=== PATIENT | female | born 1995 | race Two or more races ===

== ENCOUNTER 2017-04-24 07:41 | Emergency (ER) | payer OTHER ==
[2017-04-24] MEDS ORDERED: NS 1,000 ML IV ONE (08:00)
[2017-04-24 08:26] LABS: % IMMATURE GRANULYOCYTES 0.3 % (0.0-1.1); ABSOLUTE IMMATURE GRANULOCYTES 0.02 10^3/uL (0.00-0.10); ADD DIFF? NO; ADD MORPH? NO; ADD SCAN? NO; ATYPICAL LYMPHOCYTE FLAG 10 (0-99); FRAGMENT RBC FLAG 0 (0-99); HEMATOCRIT 43.1 % (38.0-47.0); LEFT SHIFT FLG 0 (0-99); LIPEMIA HEMOLYSIS FLAG 80 (0-99); MEAN CELL HEMOGLOBIN CONCENTR. 32.5 g/dL (32.4-36.7); MEAN CELL VOLUME 86.2 fL (81.5-99.8); MEAN PLATELET VOLUME 9.6 fL (8.7-11.7); PLATELET CLUMPS FLAG 0 (0-99); PLATELET COUNT 236 10^3/uL (150-400); RED CELL DISTRIBUTION WIDTH 13.6 % (11.5-15.2)
[2017-04-24 08:31] LABS: ANION GAP 11 mEq/L (8-16); CALCIUM 9.8 mg/dL (8.5-10.4); CARBON DIOXIDE 26 mEq/l (22-31); CHLORIDE 103 mEq/L (97-110); CREATININE 0.6 mg/dL (0.6-1.0); GLOMERULAR FILTRATION RATE > 60; GLUCOSE 94 mg/dL (70-100); POTASSIUM 4.1 mEq/L (3.5-5.2); SODIUM 140 mEq/L (134-144)
[2017-04-24] MEDS ORDERED: KETOROLAC 30 MG/1 ML SDV IVP ONE (08:34)
--- NOTE | 2017-04-24 09:15 | EDPHY ---
HPI/HX/ROS/PE/MDM Narrative: CHIEF COMPLAINT: Abdominal pain, flank pain HPI: The patient is a 22 y/o female arriving with her friend complaining of LLQ abdominal pain and left flank pain for the last 2 days that worsened around 17: 00 last night, about 15.5 hours ago. She went to urgent care on Friday, 5 days ago, for sinus symptoms and was prescribed Augmentin. Most of her symptoms improved, but she continued to have a fever. Two days ago she developed lower abdominal pain, back pain, and continued to have a fever so she went to urgent care ago. Her UA indicated a UTI and they prescribed her Levaquin and advised her to stop the Augmentin. Her pain worsened last night and she had difficulty sleeping. She has associated urinary urgency and frequency, but denies dysuria, hematuria, vomiting, or other complaints. Her LMP was 1 week ago. REVIEW OF SYSTEMS: Aside from elements discussed in the HPI, a comprehensive 10-point review of systems was reviewed and is negative. PMH: UTIs, 1 prior kidney infection, rhinoplasties x3, sinus infections SOCIAL HISTORY: Friend at bedside PHYSICAL EXAM: General:Patient is alert, resting comfortably chewing gum, in no acute distress. ENT:Eyes are normal to inspection. ENT inspection normal. Neck: Normal inspection. Full range of motion. Respiratory:No respiratory distress. Breath sounds normal bilaterally. Cardiovascular: Regular rate and rhythm. Strong peripheral pulses. Normal cap refill. Abdomen: The abdomen is nontender to palpation. There are no peritoneal signs. Back: Normal to inspection. No tenderness to palpation. Skin: Normal color. No rash. Warm and dry. Extremities: Normal appearance. Full range of motion. Neuro: Oriented x3. Normal motor function. Normal sensory function. ED Course: This is a healthy 22 y/o female who presents with a 2-day history of back pain and abdominal pain with associated urinary symptoms in addition to a 5-day history of fever. She has been on Augmentin and Levaquin in the last week for a sinus infection and UTI, respectively. She is completely well-appearing on exam with a benign abdomen. She is afebrile. Plan for IV, basic labs, UA, and symptom management. 1L IV NS and 30mg IV Toradol administered. Pelvic US is unremarkable for acute process per Dr. Torres, radiology. Abdominal CT negative. Patient's urine will be sent for culture. I discussed work up with the patient. She will be discharged home in good condition with standard UTI care instructions and return precautions. She is comfortable with this plan. - Data Points Imaging Results: Imaging Impressions Abdomen/Pelvis Ultrasound 04/24/17 10:35 Impression: 1. No hydronephrosis or perinephric fluid collection. 2. No postvoid residual. 3. Minimally echogenic kidneys may be a manifestation of bilateral pyelonephritis or medical renal disease. Findings discussed with Emergency Department physician, Dr. Eleazar Cochran, on April 24, 2017 at 1211 hours. Pelvic/Renal Ultrasound 04/24/17 10:35 Impression: 1. Normal uterus and right ovary. No torsion or ovarian cyst. 2. Left ovary is not well visualized. No left adnexal mass. Findings discussed with Emergency Department physician, Dr. Eleazar Cochran, on April 24, [address] 04/24/17 12:19 Impression: 1. No visible etiology for the patient's pain. 2. 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 Findings discussed with Eleazar Cochran MD, 04/24/2017, at 1334 hours. Imaging: Discussed imaging studies w/ bingo caller Radiologist, I viewed and interpreted images myself Laboratory Results: Laboratory Results 04/24/17 08:07 04/24/17 08:07 04/24/17 04/24/17 04/24/17 09:41 08:07 08:07 WBC RBC Hgb Hct MCV MCH MCHC RDW Plt Count MPV Neut % (Auto) Lymph % (Auto) [place] % (Auto) Eos % (Auto) Baso % (Auto) Nucleat RBC Rel Count Absolute Neuts (auto) Absolute Lymphs (auto) Absolute Monos (auto) Absolute Eos (auto) Absolute Basos (auto) Absolute Nucleated RBC Immature Gran % Immature Gran # Sodium 140 mEq/L mEq/L (134-144) Potassium 4.1 mEq/L mEq/L (3.5-5.2) Chloride 103 mEq/L mEq/L (97-110) Carbon Dioxide 26 mEq/l mEq/l (22-31) Anion Gap 11 mEq/L mEq/L (8-16) BUN 11 mg/dL mg/dL (7-23) Creatinine 0.6 mg/dL mg/dL (0.6-1.0) Estimated GFR > 60 Glucose 94 mg/dL mg/dL (70-100) Calcium 9.8 mg/dL mg/dL (8.5-10.4) Beta HCG, Qual NEGATIVE Urine Color YELLOW Urine Appearance HAZY Urine pH 7.0 (5.0-7.5) Ur Specific [place] 1.017 (1.002-1.030) Urine Protein NEGATIVE (NEGATIVE) Urine Ketones NEGATIVE (NEGATIVE) Urine Blood NEGATIVE (NEGATIVE) Urine Nitrate NEGATIVE (NEGATIVE) Urine Bilirubin NEGATIVE (NEGATIVE) Urine Urobilinogen NEGATIVE EU EU (0.2-1.0) Ur Leukocyte Esterase TRACE H (NEGATIVE) Urine RBC 3-5 /hpf H /hpf (0-3) Urine WBC 5-10 /hpf H /hpf (0-3) Ur Epithelial Cells 1+ /lpf /lpf (NONE-1+) Urine Bacteria TRACE /hpf H /hpf (NONE SEEN) Urine Mucus TRACE /lpf /lpf (NONE-1+) Urine Glucose NEGATIVE (NEGATIVE) 04/24/17 08:07 WBC 5.93 10^3/uL 10^3/uL (3.80-9.50) RBC 5.00 10^6/uL 10^6/uL (4.18-5.33) Hgb 14.0 g/dL g/dL (12.6-16.3) Hct 43.1 % % (38.0-47.0) MCV 86.2 fL fL (81.5-99.8) MCH 28.0 pg pg (27.9-34.1) MCHC 32.5 g/dL g/dL (32.4-36.7) RDW 13.6 % % (11.5-15.2) Plt Count 236 10^3/uL 10^3/uL (150-400) MPV 9.6 fL fL (8.7-11.7) Neut % (Auto) 44.2 % % (39.3-74.2) Lymph % (Auto) 42.7 % % (15.0-45.0) [place] % (Auto) 8.4 % % (4.5-13.0) Eos % (Auto) 3.7 % % (0.6-7.6) Baso % (Auto) 0.7 % % (0.3-1.7) Nucleat RBC Rel Count 0.0 % % (0.0-0.2) Absolute Neuts (auto) 2.62 10^3/uL 10^3/uL (1.70-6.50) Absolute Lymphs (auto) 2.53 10^3/uL 10^3/uL (1.00-3.00) Absolute Monos (auto) 0.50 10^3/uL 10^3/uL (0.30-0.80) Absolute Eos (auto) 0.22 10^3/uL 10^3/uL (0.03-0.40) Absolute Basos (auto) 0.04 10^3/uL 10^3/uL (0.02-0.10) Absolute Nucleated RBC 0.00 10^3/uL 10^3/uL (0-0.01) Immature Gran % 0.3 % % (0.0-1.1) Immature Gran # 0.02 10^3/uL 10^3/uL (0.00-0.10) Sodium Potassium Chloride Carbon Dioxide Anion Gap BUN Creatinine Estimated GFR Glucose Calcium Beta HCG, Qual Urine Color Urine Appearance Urine pH Ur Specific [place] Urine Protein Urine Ketones Urine Blood Urine Nitrate Urine Bilirubin Urine Urobilinogen Ur Leukocyte Esterase Urine RBC Urine WBC Ur Epithelial Cells Urine Bacteria Urine Mucus Urine Glucose Medications Given: Discontinued Medications Sodium Chloride (Ns) 1,000 mls @ 0 mls/hr IV ONCE ONE PRN Reason: Wide Open Stop: 04/24/17 08:01 Last Admin: 04/24/17 08:00 Dose: 1,000 mls Ketorolac Tromethamine (Toradol) 30 mg IVP EDNOW ONE Stop: 04/24/17 08:35 Last Admin: 04/24/17 08:38 Dose: 30 mg General Time Seen by Provider: 04/24/17 08:20 Initial Vital Signs: Initial Vital Signs Temperature (C) 36.5 C 04/24/17 07:46 Heart Rate 84 04/24/17 07:46 Respiratory Rate 18 04/24/17 07:46 Blood Pressure 126/88 H 04/24/17 07:46 O2 Sat (%) 97 04/24/17 07:46 O2 Delivery Mode Room Air Allergies/Adverse Reactions: acetaminophen [From Vicodin] Allergy (Verified 04/24/17 07:44) azithromycin Allergy (Verified 04/24/17 07:44) hydrocodone bitartrate [From Vicodin] Allergy (Verified 04/24/17 07:44) latex Allergy (Verified 04/24/17 07:44) promethazine HCl [From Phenergan] Allergy (Verified 04/24/17 07:44) Home Medications: Medication Instructions Recorded Cephalexin [Keflex] 500 mg PO BID 5 Days 08/04/16 Sprintec 28 Day Tablet 08/04/16 Zoloft 100mg (*) 04/24/17 Departure - Departure Disposition: Home, Routine, Self-Care Clinical Impression: Flank pain Abdominal pain Qualifiers: Abdominal location: left lower quadrant Qualified Code(s): R10.32 - Left lower quadrant pain Urinary tract infection Qualifiers: Urinary tract infection type: site unspecified Hematuria presence: without hematuria Qualified Code(s): N39.0 - Urinary tract infection, site not specified Condition: Good Instructions: Urinary Tract Infection in Women (ED), Acute Abdominal Pain (ED) Additional Instructions: 1. Continue taking Levaquin as prescribed. 2. Follow up with your primary care provider for unimproved symptoms over the next few days. 3. Return to the ED for worsening of condition. Referrals: NONE *PRIMARY CARE P,. [Unknown] - As per Instructions [facility] [Clinic] - As per Instructions Report Scribed for: Eleazar Cochran Report Scribed by: Shabana Kendrick Date of Report: 04/24/17 Time of Report: 09:45 Physician Review and Approval Statement: Portions of this note were transcribed by an ED scribe. I personally performed the history, physical exam, and medical decision making; and confirm the accuracy of the information in the transcribed note.
[2017-04-24 09:51] LABS: COLOR YELLOW; LEUKOCYTE ESTERASE,URINE TRACE (NEGATIVE); NITRITE,URINE NEGATIVE (NEGATIVE)
[2017-04-24 09:59] LABS: BACTERIA TRACE /hpf (NONE SEEN); MUCUS TRACE /lpf (NONE-1+)
[2017-04-24 11:34] VITALS: RESP 16; TEMP 98.4
[2017-04-24] MEDS ORDERED: IOPAMIDOL (ISOVUE-300) 100 ML BTL ONE (13:02)
[2017-04-24 14:00] VITALS: BP 109/67; PULSE 69; O2SAT 97
== END 2017-04-24 13:58 | disposition home or self-care (01) ==
DX: N39.0 Urinary tract infection, site not specified (principal)
CPT/HCPCS: 96374; J1885; Q9967

== ENCOUNTER 2018-02-09 21:12 | Emergency (ER) | payer OTHER ==
[2018-02-09] MEDS ORDERED: NS 1,000 ML IV ONE ×2 (21:45→22:05)
[2018-02-09 22:12] LABS: PLATELET COUNT 317 10^3/uL (150-400)
--- NOTE | 2018-02-09 22:15 | EDPHY ---
H & P Stated Complaint: N/V, R side abd pain Time Seen by Provider: 02/09/18 22:15 HPI/ROS: HPI CHIEF COMPLAINT: Nausea, vomiting, diarrhea, abdominal pain HISTORY OF PRESENT ILLNESS: Patient very pleasant 23-year-old female, she has a history of mast cell activation, as well as urinary tract infections and kidney infections, she presents emergency room nausea vomiting and diarrhea abdominal pain. Patient reports to me that she started having some diarrhea earlier this morning around 10:00 a.m. And then had some lower abdominal pain that started earlier in the day. She then developed vomiting throughout the day. She states she vomited over 20 times. No blood. She denies any blood in her vomit or diarrhea. No fever. Main complaint now is ongoing nausea with lower abdominal pain. She has had watery diarrhea. 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 Family History: Noncontributory ROS REVIEW OF SYSTEMS: A comprehensive 10 point review of systems is otherwise negative aside from elements mentioned in the history of present illness. Exam Constitutional nontoxic appearing triage nursing summary reviewed, vital signs reviewed, awake/alert. Eyes normal conjunctivae and sclera, EOMI, PERRLA. HENT normal inspection, atraumatic, moist mucus membranes, no epistaxis, neck supple/ no meningismus, no raccoon eyes. Respiratory clear to auscultation bilaterally, normal breath sounds, no respiratory distress, no wheezing. Cardiovascular rate normal, regular rhythm, no murmur, no edema, distal pulses normal. Gastrointestinal mild tender palpation right lower quadrant,, no rebound, no guarding, normal bowel sounds, no distension, no pulsatile mass. Genitourinary no CVA tenderness. Musculoskeletal no midline vertebral tenderness, full range of motion, no calf swelling, no tenderness of extremities, no meningismus, good pulses, neurovascularly intact. Skin pink, warm, & dry, no rash, skin atraumatic. Neurologic awake, alert and oriented x 3, AAOx3, moves all 4 extremities equally, motor intact, sensory intact, CN II-XII intact, normal cerebellar, normal vision, normal speech. Psychiatric normal mood/affect. Heme/Lymph/Immune no lymphadenopathy. Differential diagnosis includes but is not limited to and in no particular order : Bowel obstruction, appendicitis, gallbladder disease, diverticulitis, colitis , enteritis, perforated viscus, gastritis, GERD, esophagitis, urinary tract infection, pyelonephritis, kidney stones Medical Decision Making: Plan for this patient IV establishment IV fluid bolus 2 L normal saline, IV Zofran nausea, check basic blood work electrolytes, test, CT scan abdomen pelvis with IV contrast rule out acute appendicitis. Re-evaluation: 1207: Patient re-evaluated. She is feeling slightly better but still complains of nausea and some abdominal cramping. She has received 2 L of fluid here in the emergency room. Her blood work has been reviewed. I will give her another dose of Zofran to see if this improves her nausea. CT scan abdomen pelvis with IV contrast shows no evidence of acute appendicitis there is a questionable right ovarian cyst versus abscess. We performed a ultrasound which shows no evidence of ovarian cyst, this appears to be a area of the cecum nose fluid-filled. After long discussion with the patient she still not feeling that well, plan will be for admission to the hospital for hydration nausea vomiting and diarrhea. 1214: Further discussion with the patient she is now declined hospital admission wants to go home. I explained that we did not see her appendix on CT scan and if she develops worsening abdominal pain fever vomiting she needs return to the emergency room. She is agreeable this plan. Return precautions discussed with her. Most likely clinical diagnosis a GI illness with nausea vomiting and diarrhea. Source: Patient - Personal History LMP (Females 10-55): 22-28 Days Ago Current Tetanus/Diphtheria Vaccine: Yes - Medical/Surgical History Hx Asthma: No Hx Chronic Respiratory Disease: No Hx Diabetes: No Hx Cardiac Disease: No Hx Renal Disease: No Hx Cirrhosis: No Hx Alcoholism: No Hx HIV/AIDS: No Hx Splenectomy or Spleen Trauma: No Other PMH: t&a rhinoplasty, mast cell activation syndrome, narcalepsy - Social History Smoking Status: Never smoked Constitutional: Initial Vital Signs Temperature (C) 37.2 C 02/09/18 21:12 Heart Rate 120 H 02/09/18 21:12 Respiratory Rate 18 02/09/18 21:12 Blood Pressure 112/80 02/09/18 21:12 O2 Sat (%) 99 02/09/18 21:12 O2 Delivery Mode Room Air Allergies/Adverse Reactions: acetaminophen [From Vicodin] Allergy (Verified 04/24/17 07:44) azithromycin Allergy (Verified 04/24/17 07:44) hydrocodone bitartrate [From Vicodin] Allergy (Verified 04/24/17 07:44) latex Allergy (Verified 04/24/17 07:44) promethazine HCl [From Phenergan] Allergy (Verified 04/24/17 07:44) Home Medications: Medication Instructions Recorded Sprintec 28 Day Tablet 08/04/16 Zoloft 100mg (*) 04/24/17 Ondansetron HCl [Zofran] 4 mg PO Q4-6PRN PRN #10 tablet 02/09/18 ZYRTEC 02/09/18 Medical Decision Making - Diagnostics Imaging Results: Imaging Impressions Abdomen CT 02/09/18 22:20 Impression: 1. 5 cm multiloculated fluid collection in the right lower quadrant, periappendiceal abscess versus ovarian cyst. Recommend pelvic sonography for further evaluation. Results called to Dr. Rush at 11:30 PM. Pelvic/Renal Ultrasound 02/09/18 23:27 Impression: Normal ultrasound pelvis. Fluid filled structure in the right adnexa appears represent the cecum. No convincing features of pelvic abscess or acute appendicitis on retrospective review of CT. Results called to Dr. Jude Rush at 12:00 PM. - Data Points Laboratory Results: Laboratory Results 02/09/18 21:55 02/09/18 21:55 02/09/18 02/09/18 02/09/18 23:28 21:55 21:55 WBC RBC Hgb Hct MCV MCH MCHC RDW Plt Count MPV Neut % (Auto) Lymph % (Auto) [place] % (Auto) Eos % (Auto) Baso % (Auto) Nucleat RBC Rel Count Absolute Neuts (auto) Absolute Lymphs (auto) Absolute Monos (auto) Absolute Eos (auto) Absolute Basos (auto) Absolute Nucleated RBC Immature Gran % Seg Neutrophils % Band Neutrophils % Lymphocytes % Monocytes % Eosinophils % Basophils % Metamyelocytes % Myelocytes % Promyelocytes % Blast Cells % Immature Gran # Absolute Seg Neuts Absolute Band Neuts Absolute Lymphocytes Absolute Monocytes Absolute Eosinophils Absolute Basophils Absolute Metamyelocyte Absolute Myelocytes Absolute Promyelocytes Absolute Plasma Cells RBC/WBC/PLT Morphology Absolute Blast Cells Plasma Cells % Platelet Estimate VBG Lactic Acid Sodium 137 mEq/L mEq/L (135-145) Potassium 4.0 mEq/L mEq/L (3.3-5.0) Chloride 103 mEq/L mEq/L (97-110) Carbon Dioxide 18 mEq/l L mEq/l (22-31) Anion Gap 16 mEq/L mEq/L (8-16) BUN 15 mg/dL mg/dL (7-23) Creatinine 0.6 mg/dL mg/dL (0.6-1.0) Estimated GFR > 60 Glucose 120 mg/dL H mg/dL (70-100) Calcium 10.1 mg/dL mg/dL (8.5-10.4) Total Bilirubin 0.7 mg/dL mg/dL (0.1-1.4) Conjugated Bilirubin 0.3 mg/dL mg/dL (0.0-0.5) Unconjugated Bilirubin 0.4 mg/dL mg/dL (0.0-1.1) AST 21 IU/L IU/L (14-46) ALT 27 IU/L IU/L (9-52) Alkaline Phosphatase 69 IU/L IU/L (38-126) Total Protein 8.2 g/dL g/dL (6.3-8.2) Albumin 4.9 g/dL g/dL (3.5-5.0) Lipase 34 IU/L IU/L (23-300) Beta HCG, Qual NEGATIVE Urine Color YELLOW Urine Appearance CLEAR Urine pH 6.0 (5.0-7.5) Ur Specific [place] > 1.035 H (1.002-1.030) Urine Protein NEGATIVE (NEGATIVE) Urine Ketones 2+ H (NEGATIVE) Urine Blood 1+ H (NEGATIVE) Urine Nitrate NEGATIVE (NEGATIVE) Urine Bilirubin NEGATIVE (NEGATIVE) Urine Urobilinogen NEGATIVE EU EU (0.2-1.0) Ur Leukocyte Esterase NEGATIVE (NEGATIVE) Urine RBC 5-10 /hpf H /hpf (0-3) Urine WBC 1-3 /hpf /hpf (0-3) Ur Epithelial Cells TRACE /lpf /lpf (NONE-1+) Urine Mucus TRACE /lpf /lpf (NONE-1+) Urine Glucose NEGATIVE (NEGATIVE) 02/09/18 02/09/18 21:55 21:55 WBC 13.92 10^3/uL H 10^3/uL (3.80-9.50) RBC 4.98 10^6/uL 10^6/uL (4.18-5.33) Hgb 14.1 g/dL g/dL (12.6-16.3) Hct 42.1 % % (38.0-47.0) MCV 84.5 fL fL (81.5-99.8) MCH 28.3 pg pg (27.9-34.1) MCHC 33.5 g/dL g/dL (32.4-36.7) RDW 13.3 % % (11.5-15.2) Plt Count 317 10^3/uL 10^3/uL (150-400) MPV 9.6 fL fL (8.7-11.7) Neut % (Auto) 92.3 % H % (39.3-74.2) Lymph % (Auto) 3.5 % L % (15.0-45.0) [place] % (Auto) 3.4 % L % (4.5-13.0) Eos % (Auto) 0.1 % L % (0.6-7.6) Baso % (Auto) 0.3 % % (0.3-1.7) Nucleat RBC Rel Count 0.0 % % (0.0-0.2) Absolute Neuts (auto) 12.84 10^3/uL H 10^3/uL (1.70-6.50) Absolute Lymphs (auto) 0.49 10^3/uL L 10^3/uL (1.00-3.00) Absolute Monos (auto) 0.47 10^3/uL 10^3/uL (0.30-0.80) Absolute Eos (auto) 0.02 10^3/uL L 10^3/uL (0.03-0.40) Absolute Basos (auto) 0.04 10^3/uL 10^3/uL (0.02-0.10) Absolute Nucleated RBC 0.00 10^3/uL 10^3/uL (0-0.01) Immature Gran % 0.4 % % (0.0-1.1) Seg Neutrophils % 86.0 % % Band Neutrophils % 6.0 % % Lymphocytes % 5.0 % % Monocytes % 3.0 % % Eosinophils % 0 % % Basophils % 0 % % Metamyelocytes % 0 % % Myelocytes % 0 % % Promyelocytes % 0 % % Blast Cells % 0 % % Immature Gran # 0.06 10^3/uL 10^3/uL (0.00-0.10) Absolute Seg Neuts 11.97 10^/uL H 10^/uL (1.70-6.50) Absolute Band Neuts 0.84 10^3/uL H 10^3/uL (0.00-0.70) Absolute Lymphocytes 0.70 10^3/uL L 10^3/uL (1.00-3.00) Absolute Monocytes 0.42 10^3/uL 10^3/uL (0.30-0.80) Absolute Eosinophils 0.00 10^3/uL L 10^3/uL (0.03-0.40) Absolute Basophils 0.00 10^3/uL L 10^3/uL (0.02-0.10) Absolute Metamyelocyte 0.00 10^3/mL 10^3/mL (0.00-0.00) Absolute Myelocytes 0.00 10^3/mL 10^3/mL (0.00-0.00) Absolute Promyelocytes 0.00 10^3/uL 10^3/uL (0.00-0.00) Absolute Plasma Cells 0.00 10^3/uL 10^3/uL (0.00-0.00) RBC/WBC/PLT Morphology NORMAL (NORMAL) Absolute Blast Cells 0.00 10^3/uL 10^3/uL (0.00-0.00) Plasma Cells % 0 % % Platelet Estimate ADEQUATE (ADEQ) VBG Lactic Acid 2.1 mmol/L mmol/L (0.7-2.1) Sodium Potassium Chloride Carbon Dioxide Anion Gap BUN Creatinine Estimated GFR Glucose Calcium Total Bilirubin Conjugated Bilirubin Unconjugated Bilirubin AST ALT Alkaline Phosphatase Total Protein Albumin Lipase Beta HCG, Qual Urine Color Urine Appearance Urine pH Ur Specific [place] Urine Protein Urine Ketones Urine Blood Urine Nitrate Urine Bilirubin Urine Urobilinogen Ur Leukocyte Esterase Urine RBC Urine WBC Ur Epithelial Cells Urine Mucus Urine Glucose Medications Given: Discontinued Medications Famotidine (Pepcid) 20 mg IVP EDNOW ONE Stop: 02/09/18 22:21 Last Admin: 02/09/18 22:28 Dose: 20 mg Sodium Chloride (Ns) 1,000 mls @ 0 mls/hr IV ONCE ONE PRN Reason: Wide Open Stop: 02/09/18 21:46 Last Admin: 02/09/18 21:51 Dose: 1,000 mls Sodium Chloride (Ns) 1,000 mls @ 0 mls/hr IV EDNOW ONE; Wide Open PRN Reason: Protocol Stop: 02/09/18 22:06 Last Admin: 02/09/18 22:18 Dose: 1,000 mls Ondansetron HCl (Zofran) 4 mg IVP EDNOW ONE Stop: 02/09/18 22:20 Last Admin: 02/09/18 22:26 Dose: 4 mg Ondansetron HCl (Zofran) 4 mg IVP EDNOW ONE Stop: 02/10/18 00:08 Last Admin: 02/10/18 00:09 Dose: 4 mg Departure - Departure Disposition: Home, Routine, Self-Care Clinical Impression: Dehydration Vomiting Qualifiers: Vomiting type: unspecified Vomiting Intractability: non-intractable Nausea presence: with nausea Qualified Code(s): R11.2 - Nausea with vomiting, unspecified Diarrhea Qualifiers: Diarrhea type: unspecified type Qualified Code(s): R19.7 - Diarrhea, unspecified Condition: Good
[2018-02-09] MEDS ORDERED: ONDANSETRON 4 MG/2 ML VIAL IVP ONE (22:19)
[2018-02-09] MEDS ORDERED: FAMOTIDINE 20 MG/2 ML SDV IVP ONE (22:20)
[2018-02-09] MEDS ORDERED: IOPAMIDOL (ISOVUE-300) 100 ML BTL ONE ×2 (22:21→22:58)
[2018-02-09 23:10] VITALS: BP 124/68
[2018-02-10] MEDS ORDERED: ONDANSETRON 4 MG/2 ML VIAL IVP ONE (00:07)
== END 2018-02-10 00:21 | disposition home or self-care (01) ==
LOC: UNDOADMOB 02-10 00:09
DX: R11.2 Nausea with vomiting, unspecified (principal); R19.7 Diarrhea, unspecified; E86.9 Volume depletion, unspecified; Z91.040 Latex allergy status
CPT/HCPCS: 96374; J2405; Q9967

== ENCOUNTER 2018-08-02 20:02 | Emergency (ER) | payer OTHER ==
[2018-08-02] MEDS ORDERED: IBUPROFEN 800 MG TAB PO ONE (20:09)
[2018-08-02] MEDS ORDERED: OXYCODONE/APAP 5/325 TAB PO ONE (20:09)
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
[2018-08-02 20:33] VITALS: BP 126/72
== END 2018-08-02 20:38 | disposition home or self-care (01) ==
DX: T23.152A Burn of first degree of left palm, initial encounter (principal); X15.8XXA Contact with other hot household appliances, initial encounter; Y92.9 Unspecified place or not applicable; Y93.9 Activity, unspecified